=== PATIENT | female | born 2000 | race Caucasian/White ===

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

== ENCOUNTER → 2018-09-21 | Outpatient (REF) | payer OTHER ==
[~2018-09-21] MED LIST: IBUP-1022 PO; MACR100C43 PO; PYRI1TAB5 PO
== END ==
LOC: M LAB REF 17:00
PROVIDERS: ATTEND Advanced Practice Midwife
DX: R10.2 Pelvic and perineal pain (principal)

== ENCOUNTER → 2018-09-25 | Outpatient (CLI) | payer OTHER | LOC: M LAB 13:05 | PROVIDERS: ATTEND Advanced Practice Midwife | DX: O20.0 Threatened abortion (principal); Z3A.00 Weeks of gestation of pregnancy not specified ==

== ENCOUNTER 2018-10-18 23:17 | Emergency (ER) | payer OTHER, SELFPAY ==
[~2018-10-18] VITALS: Ht 170.2 cm; Wt 60.4 kg
[2018-10-19 00:34] LABS: BASO # 0.1 10^3/uL (0.0-0.2); BASO % 0.6 % (0.0-1.0); EOS # 0.1 10^3/uL (0.0-0.50); EOS % 1.4 % (0.0-3.0); HEMOGLOBIN 12.1 g/dl (12.0-15.5); LYMPH % 23.5 % (24.0-44.0); MEAN CORPUSCULAR HEMOGLOBIN 29.9 pg (27.0-33.0); MEAN CORPUSCULAR HGB CONC 32.7 g/dl (32.0-36.5); MEAN CORPUSCULAR VOLUME 91.4 fl (80.0-96.0); MONO # 0.5 10^3/uL (0.0-0.8); MONO % 6.3 % (0.0-5.0); NEUTROPHILS # 5.7 10^3/uL (1.8-7.7); PLATELET COUNT, AUTOMATED 285 10^3/uL (150-450); RED BLOOD COUNT 4.05 10^6/uL (4.00-5.40); WHITE BLOOD COUNT 8.4 10^3/uL (4.0-10.0)
--- NOTE | 2018-10-19 00:51 | REPVR ---
EXAM: CT Head Without Contrast EXAM DATE/TIME: 10/18/2018 11:46 PM CLINICAL HISTORY: 17 years old, female; Signs and symptoms; Dizziness; Additional info: Syncope TECHNIQUE: Imaging protocol: Axial computed tomography images of the head/brain without contrast. Radiation optimization: All CT scans at this facility use at least one of these dose optimization techniques: automated exposure control; mA and/or kV adjustment per patient size (includes targeted exams where dose is matched to clinical indication); or iterative reconstruction. COMPARISON: No relevant prior studies available. FINDINGS: Brain: Normal. No hemorrhage. No significant white matter disease. No edema. Ventricles: Normal. No ventriculomegaly. Bones/joints: Unremarkable. No acute fracture. Sinuses: Visualized sinuses are unremarkable. No acute sinusitis. Mastoid air cells: Visualized mastoid air cells are unremarkable. No mastoid effusion. Soft tissues: Unremarkable. IMPRESSION: Negative noncontrast head CT. Electronically signed by: Phill Newton On 10/19/2018 00:50:20 AM
[2018-10-19 00:59] LABS: BLOOD UREA NITROGEN 12 MG/DL (7-18); CALCIUM LEVEL 9.1 MG/DL (8.5-10.1); CARBON DIOXIDE LEVEL 31 MEQ/L (21-32); CHLORIDE LEVEL 106 MEQ/L (98-107); CREATININE FOR GFR 0.75 MG/DL (0.55-1.30); FREE T4 1.12 NG/DL (0.78-1.33); GLUCOSE, FASTING 83 MG/DL (70-100); POTASSIUM SERUM 3.7 MEQ/L (3.5-5.1); SODIUM LEVEL 139 MEQ/L (136-145)
[2018-10-19] MEDS ORDERED: NS 1,000 ML IV ONE (01:15)
[2018-10-19 02:00] VITALS: BP 113/69
--- NOTE | 2018-10-19 09:27 | ECGEPIP ---
Stationary ECG Study 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
== END 2018-10-19 02:34 | disposition home or self-care (01) ==
LOC: M ED 23:17
DX: R55 Syncope and collapse (principal); Z91.018 Allergy to other foods

== ENCOUNTER → 2018-12-17 | Outpatient (CLI) | payer OTHER ==
[~2018-12-17] MED LIST changes: +ASPI81TA26; +FERR32TA; +IBUP80TA PO; +KEFL500C17 PO; +ONDA4TAB6 PO; +PERCOCET PO; +PYRI25TA2 PO; +STOO2CAP
[2018-12-17 20:42] LABS: FOLLICLE STIMULATING HORMONE 3.7 mIU/mL; LUTEINIZING HORMONE 6.8 mIU/mL; PROGESTERONE 7.2 NG/ML; PROLACTIN 10.8 NG/ML
== END ==
LOC: M SMT 14:22
PROVIDERS: ATTEND Specialist
DX: N93.8 Other specified abnormal uterine and vaginal bleeding (principal)

== ENCOUNTER 2019-01-18 00:25 | Emergency (ER) | payer OTHER ==
[~2019-01-18] VITALS: Ht 170.2 cm; Wt 1.0 kg
[~2019-01-18 00:25] MED LIST changes: -ASPI81TA26; -FERR32TA; -IBUP80TA PO; -KEFL500C17 PO; -ONDA4TAB6 PO; -PERCOCET PO; -PYRI25TA2 PO; -STOO2CAP
[2019-01-18 02:34] LABS: BASO # 0.1 10^3/uL (0.0-0.2); BASO % 0.4 % (0.0-1.0); EOS # 0.2 10^3/uL (0.0-0.50); EOS % 1.3 % (0.0-3.0); HEMATOCRIT 35.5 % (36.0-47.0); HEMOGLOBIN 11.5 g/dl (12.0-15.5); LYMPH # 2.9 10^3/uL (1.5-6.5); LYMPH % 25.4 % (24.0-44.0); MEAN CORPUSCULAR HEMOGLOBIN 29.9 pg (27.0-33.0); MEAN CORPUSCULAR HGB CONC 32.4 g/dl (32.0-36.5); MEAN CORPUSCULAR VOLUME 92.4 fl (80.0-96.0); MONO # 0.6 10^3/uL (0.0-0.8); MONO % 5.3 % (0.0-5.0); NEUTROPHILS # 7.7 10^3/uL (1.8-7.7); NEUTROPHILS % 67.3 % (36.0-66.0); PLATELET COUNT, AUTOMATED 261 10^3/uL (150-450); RED BLOOD COUNT 3.84 10^6/uL (4.00-5.40); WHITE BLOOD COUNT 11.5 10^3/uL (4.0-10.0)
[2019-01-18 02:58] LABS: ALBUMIN 3.6 GM/DL (3.2-5.2); ALT/SGPT 14 U/L (12-78); BILIRUBIN,DIRECT 0.1 MG/DL (0.0-0.2); BILIRUBIN,TOTAL 0.3 MG/DL (0.2-1.0); BLOOD UREA NITROGEN 11 MG/DL (7-18); CALCIUM LEVEL 8.4 MG/DL (8.5-10.1); CARBON DIOXIDE LEVEL 26 MEQ/L (21-32); CHLORIDE LEVEL 107 MEQ/L (98-107); CREATININE FOR GFR 0.65 MG/DL (0.55-1.30); GLUCOSE, FASTING 84 MG/DL (70-100); HCG, SERUM QUANTITATIVE 12 MIU/ML; LIPASE 118 U/L (73-393); POTASSIUM SERUM 3.9 MEQ/L (3.5-5.1); SODIUM LEVEL 141 MEQ/L (136-145)
[2019-01-18 03:17] LABS: CHLAMYDIA DNA AMPLIFICATION NEGATIVE (NEGATIVE); GC DNA AMPLIFICATION NEGATIVE (NEGATIVE)
--- NOTE | 2019-01-18 05:24 | REPVR ---
EXAM: US , Transvaginal EXAM DATE/TIME: 01/18/2019 4:04 AM CLINICAL HISTORY: 18 years old, female; complicated by abdominal or pelvic pain; Left lower quadrant; First trimester; Gestational age or lmp: 12/26/18; ; Additional info: Left adnexal pain, hcg quant 12 TECHNIQUE: Imaging protocol: Real-time transvaginal obstetrical ultrasound of the maternal pelvis and a first trimester with image documentation. Transvaginal imaging was used for better evaluation of the fetus and adnexa. Other technique: Transabdominal imaging was initially performed but visibility was limited by bowel gas. COMPARISON: US PELVIC NON-OB COMPLETE 09/07/2018 9:23 AM FINDINGS: GESTATION: Gestation: No gestational sac is identified. MATERNAL: Uterus: Uterus is anteverted and measures 8.4 x 3.8 x 5.3 cm. The endometrial stripe measures 1.1 cm in thickness. Right adnexa: The right ovary contains multiple small follicles and measures 4.5 x 1.8 x 3.2 cm. Normal blood flow is seen in the right ovary on color and pulsed Doppler imaging. Left adnexa: The left ovary contains multiple small follicles and measures 4.5 x 3.0 x 4.1 cm.A rounded area of heterogeneous echogenicity is seen within the left ovary measuring 1.9 x 1.5 x 2.0 cm, likely a hemorrhagic corpus luteum. Normal blood flow is seen in the left ovary on color and pulsed Doppler imaging. Intraperitoneal: There is free fluid in the cul-de-sac and in both adnexa. IMPRESSION: 1. No gestational sac identified which may be because of the very early stage of , which would be concordant by dates and the low hCG level. Ectopic is not excluded. Followup with serial beta hCG levels is recommended, with sonographic followup as clinically indicated. 2. Small to moderate amount of nonspecific free fluid. 3. No evidence of ovarian torsion. Electronically signed by: Eliz Myers On 01/18/2019 05:24:03 AM
[2019-01-18 05:55] VITALS: BP 118/68
== END 2019-01-18 05:57 | disposition home or self-care (01) ==
LOC: M ED 00:25
DX: O02.81 Inappropriate change in quantitative human chorionic gonadotropin (hCG) in early pregnancy (principal); F17.210 Nicotine dependence, cigarettes, uncomplicated

== ENCOUNTER 2019-01-18 19:51 | Emergency (ER) | payer OTHER ==
[~2019-01-18] VITALS: Ht 170.2 cm; Wt 60.2 kg
[2019-01-18 19:52] VITALS: BP 114/73
== END 2019-01-18 21:22 | disposition left against medical advice (07) ==
LOC: M ED 19:51
DX: R10.9 Unspecified abdominal pain (principal); Z53.21 Procedure and treatment not carried out due to patient leaving prior to being seen by health care provider

== ENCOUNTER → 2019-01-20 | Outpatient (CLI) | payer OTHER | LOC: M LAB 10:09 | PROVIDERS: ATTEND Emergency Medicine | DX: E34.9 Endocrine disorder, unspecified (principal) ==

== ENCOUNTER 2019-01-22 16:15 | Emergency (ER) | payer OTHER ==
[~2019-01-22] VITALS: Ht 170.2 cm; Wt 59.1 kg
[2019-01-22 16:15] VITALS: BP 101/60
--- NOTE | 2019-01-24 14:49 | ED PDOC ---
Post-Departure Follow[facility] breast us report will be faxed there for fu Gerardo Ha MD Jan 24, 2019 14:49
== END 2019-01-22 17:14 | disposition home or self-care (01) ==
LOC: M ED 16:15
DX: O99.89 Other specified diseases and conditions complicating pregnancy, childbirth and the puerperium (principal); N63.20 Unspecified lump in the left breast, unspecified quadrant; Z3A.01 Less than 8 weeks gestation of pregnancy; O99.331 Smoking (tobacco) complicating pregnancy, first trimester; F17.210 Nicotine dependence, cigarettes, uncomplicated

== ENCOUNTER → 2019-01-24 | Outpatient (CLI) | payer OTHER ==
[~2019-01-24] MED LIST changes: +ASPI81TA26; +FERR32TA; +IBUP80TA PO; +KEFL500C17 PO; +ONDA4TAB6 PO; +PERCOCET PO; +PYRI25TA2 PO; +STOO2CAP
--- NOTE | 2019-01-24 10:14 | REP ---
LEFT BREAST ULTRASOUND: Real-time sonographic evaluation of the left breast performed for a palpable lump in the region of 12 to 2 o'clock left breast. There is dense fibroglandular tissue in this region. Cystic appearing areas with low level echoes is oval in shape with slightly irregular margins at the 2 o'clock position of the left breast. This measures 5 x 3 x 3 mm. This is likely a benign slightly complex cyst. No other cystic or solid nodule is seen. IMPRESSION: ACR 3 probably benign. At the 2 o'clock position of the left breast is an oval cystic structure with low level echoes measuring 5 x 3 x 3 mm. Recommend followup ultrasound in 6 months. Electronically Signed by George Díaz MD 01/24/2019 10:18 A
== END ==
LOC: M RAD 07:38
PROVIDERS: ATTEND Emergency Medicine
DX: N63.20 Unspecified lump in the left breast, unspecified quadrant (principal)

== ENCOUNTER 2019-02-01 13:54 | Emergency (ER) | payer OTHER ==
[~2019-02-01] VITALS: Ht 170.2 cm; Wt 62.7 kg
[~2019-02-01 13:54] MED LIST changes: -ASPI81TA26; -FERR32TA; -IBUP80TA PO; -KEFL500C17 PO; -ONDA4TAB6 PO; -PERCOCET PO; -PYRI25TA2 PO; -STOO2CAP
[2019-02-01 13:55] VITALS: BP 113/65
[2019-02-02] MEDS ORDERED: PYRI25TA2 PO (17:31)
== END 2019-02-01 16:28 | disposition left against medical advice (07) ==
LOC: M ED 13:54
DX: Z53.21 Procedure and treatment not carried out due to patient leaving prior to being seen by health care provider (principal)

== ENCOUNTER 2019-02-02 15:31 | Emergency (ER) | payer OTHER ==
[~2019-02-02] VITALS: Ht 170.2 cm; Wt 63.0 kg
[2019-02-02] MEDS ORDERED: PYRI25TA2 PO (17:31)
[2019-02-02 17:37] LABS: BASO # 0.1 10^3/uL (0.0-0.2); BASO % 0.4 % (0.0-1.0); EOS # 0.1 10^3/uL (0.0-0.50); EOS % 0.5 % (0.0-3.0); HEMATOCRIT 36.1 % (36.0-47.0); HEMOGLOBIN 11.5 g/dl (12.0-15.5); LYMPH # 1.8 10^3/uL (1.5-6.5); LYMPH % 12.5 % (24.0-44.0); MEAN CORPUSCULAR HEMOGLOBIN 28.7 pg (27.0-33.0); MEAN CORPUSCULAR HGB CONC 31.9 g/dl (32.0-36.5); MONO # 0.7 10^3/uL (0.0-0.8); MONO % 4.8 % (0.0-5.0); NEUTROPHILS # 11.9 10^3/uL (1.8-7.7); NEUTROPHILS % 81.5 % (36.0-66.0); PLATELET COUNT, AUTOMATED 260 10^3/uL (150-450); RED BLOOD COUNT 4.01 10^6/uL (4.00-5.40); WHITE BLOOD COUNT 14.7 10^3/uL (4.0-10.0)
[2019-02-02 18:36] VITALS: BP 123/64
== END 2019-02-02 18:50 | disposition home or self-care (01) ==
LOC: M ED 15:31
DX: Z32.01 Encounter for pregnancy test, result positive (principal); D72.829 Elevated white blood cell count, unspecified

== ENCOUNTER 2019-02-03 10:55 | Emergency (ER) | payer OTHER ==
[~2019-02-03] VITALS: Ht 170.2 cm; Wt 61.3 kg
[~2019-02-03 10:55] MED LIST changes: +PYRI25TA2 PO
[2019-02-03] MEDS ORDERED: NS 1,000 ML IV ONE (11:15)
[2019-02-03] MEDS ORDERED: METOCLOPRAMIDE INJ 10MG/2ML VIAL (J2765) IV ONE (11:15)
[2019-02-03 11:47] LABS: BASO % 0.3 % (0.0-1.0); EOS # 0.1 10^3/uL (0.0-0.50); EOS % 0.5 % (0.0-3.0); HEMATOCRIT 35.6 % (36.0-47.0); HEMOGLOBIN 11.6 g/dl (12.0-15.5); LYMPH # 1.2 10^3/uL (1.5-6.5); LYMPH % 12.2 % (24.0-44.0); MEAN CORPUSCULAR HEMOGLOBIN 30.1 pg (27.0-33.0); MEAN CORPUSCULAR HGB CONC 32.6 g/dl (32.0-36.5); MEAN CORPUSCULAR VOLUME 92.2 fl (80.0-96.0); MONO # 0.5 10^3/uL (0.0-0.8); MONO % 4.8 % (0.0-5.0); NEUTROPHILS # 8.1 10^3/uL (1.8-7.7); NEUTROPHILS % 81.9 % (36.0-66.0); PLATELET COUNT, AUTOMATED 238 10^3/uL (150-450); RED BLOOD COUNT 3.86 10^6/uL (4.00-5.40); WHITE BLOOD COUNT 9.9 10^3/uL (4.0-10.0)
[2019-02-03 12:16] LABS: ALBUMIN 3.6 GM/DL (3.2-5.2); ALT/SGPT 14 U/L (12-78); BILIRUBIN,TOTAL 0.7 MG/DL (0.2-1.0); BLOOD UREA NITROGEN 11 MG/DL (7-18); CALCIUM LEVEL 9.1 MG/DL (8.5-10.1); CARBON DIOXIDE LEVEL 28 MEQ/L (21-32); CHLORIDE LEVEL 105 MEQ/L (98-107); CREATININE FOR GFR 0.66 MG/DL (0.55-1.30); GLUCOSE, FASTING 89 MG/DL (70-100); LIPASE 85 U/L (73-393); POTASSIUM SERUM 3.8 MEQ/L (3.5-5.1); SODIUM LEVEL 137 MEQ/L (136-145)
[2019-02-03 12:40] VITALS: BP 92/50
== END 2019-02-03 13:05 | disposition home or self-care (01) ==
LOC: M ED 10:55
DX: O21.9 Vomiting of pregnancy, unspecified (principal); Z3A.01 Less than 8 weeks gestation of pregnancy
CPT/HCPCS: 80053; 83690; 85025; 96361; 96374; 99284; J2765

== ENCOUNTER → 2019-02-14 | Outpatient (CLI) | payer OTHER ==
[~2019-02-14] MED LIST changes: +ASPI81TA26; +FERR32TA; +IBUP80TA PO; +KEFL500C17 PO; +ONDA4TAB6 PO; +PERCOCET PO; +STOO2CAP
[2019-02-14 12:50] LABS: BASO # 0.1 10^3/uL (0.0-0.2); BASO % 0.4 % (0.0-1.0); EOS # 0.1 10^3/uL (0.0-0.50); EOS % 0.3 % (0.0-3.0); HEMATOCRIT 38.6 % (36.0-47.0); HEMOGLOBIN 12.5 g/dl (12.0-15.5); LYMPH % 13.1 % (24.0-44.0); MEAN CORPUSCULAR HEMOGLOBIN 28.9 pg (27.0-33.0); MEAN CORPUSCULAR HGB CONC 32.4 g/dl (32.0-36.5); MEAN CORPUSCULAR VOLUME 89.4 fl (80.0-96.0); MONO # 0.5 10^3/uL (0.0-0.8); MONO % 3.1 % (0.0-5.0); NEUTROPHILS # 12.4 10^3/uL (1.8-7.7); NEUTROPHILS % 82.7 % (36.0-66.0); PLATELET COUNT, AUTOMATED 333 10^3/uL (150-450); RED BLOOD COUNT 4.32 10^6/uL (4.00-5.40); WHITE BLOOD COUNT 14.9 10^3/uL (4.0-10.0)
[2019-02-14 14:45] LABS: CHLAMYDIA DNA AMPLIFICATION NEGATIVE (NEGATIVE); GC DNA AMPLIFICATION NEGATIVE (NEGATIVE)
[2019-02-15 09:59] LABS: HEPATITIS C VIRUS ABY INDEX < 0.0 INDEX (<0.8); HIV 1&2 SCREEN CENTAUR NEGATIVE (NEGATIVE); RUBELLA IgG QUALITATIVE IMMUNE (IMMUNE)
== END ==
LOC: M LAB 11:51
PROVIDERS: ATTEND Advanced Practice Midwife
DX: O30.041 Twin pregnancy, dichorionic/diamniotic, first trimester (principal); Z3A.01 Less than 8 weeks gestation of pregnancy

== ENCOUNTER 2019-03-09 09:44 | Emergency (ER) | payer OTHER ==
[~2019-03-09] VITALS: Ht 170.2 cm; Wt 62.1 kg
[~2019-03-09 09:44] MED LIST changes: -ASPI81TA26; -FERR32TA; -IBUP80TA PO; -KEFL500C17 PO; -ONDA4TAB6 PO; -PERCOCET PO; -STOO2CAP
[2019-03-09] MEDS ORDERED: ONDA4TAB6 PO (09:50)
[2019-03-09] MEDS ORDERED: ACETAMINOPHEN 500 MG TAB PO ONE (10:00)
[2019-03-09] MEDS ORDERED: NS 1,000 ML IV ONE (10:15)
[2019-03-09 11:39] LABS: BASO % 0.1 % (0.0-1.0); HEMOGLOBIN 10.5 g/dl (12.0-15.5); LYMPH # 0.5 10^3/uL (1.5-5.0); LYMPH % 3.7 % (24.0-44.0); MEAN CORPUSCULAR HEMOGLOBIN 28.6 pg (27.0-33.0); MEAN CORPUSCULAR HGB CONC 32.8 g/dl (32.0-36.5); MEAN CORPUSCULAR VOLUME 87.2 fl (80.0-96.0); MONO # 1.1 10^3/uL (0.0-0.8); MONO % 7.3 % (0.0-5.0); NEUTROPHILS # 12.8 10^3/uL (1.5-8.5); NEUTROPHILS % 88.5 % (36.0-66.0); PLATELET COUNT, AUTOMATED 236 10^3/uL (150-450); RED BLOOD COUNT 3.67 10^6/uL (4.00-5.40); WHITE BLOOD COUNT 14.4 10^3/uL (4.0-10.0)
--- NOTE | 2019-03-09 11:49 | REP ---
RIGHT UPPER QUADRANT ULTRASOUND: Real-time sonographic evaluation of the right upper quadrant performed. Gallbladder demonstrates no evidence of intraluminal sludge or calculi, wall thickening or pericholecystic fluid. There is no intrahepatic or extrahepatic biliary dilatation, common bile duct measuring 2 mm. Liver and pancreas demonstrate homogeneous echotexture with no gross mass. Right kidney demonstrates no hydronephrosis with normal size 10.8 cm in length. No free fluid is seen. IMPRESSION: Negative right upper quadrant ultrasound. Electronically Signed by George Díaz MD 03/10/2019 05:53 P
--- NOTE | 2019-03-09 11:54 | REP ---
TWIN OB ULTRASOUND: Real-time sonographic evaluation of the gravid uterus performed. There is a living intrauterine twin gestation which is diamniotic, dichorionic. Estimated gestational age based on LMP 10 weeks 3 days, EDC 10/02/2019. Placenta is posterior and grade 0 with no abruption. There is no subchorionic hemorrhage. No maternal adnexal region abnormality is seen, blood flow is seen in each ovary with duplex Doppler evaluation. Fetus A crown rump length 43 mm = 11 weeks 1 day, heart rate 171 beats per minute. Fetus B crown rump length 43 mm = 11 weeks 1 day, heart rate 168 beats per minute. Electronically Signed by George Díaz MD 03/10/2019 05:53 P
[2019-03-09 12:01] LABS: ALBUMIN 3.2 GM/DL (3.2-5.2); ALT/SGPT 11 U/L (12-78); BILIRUBIN,DIRECT 0.1 MG/DL (0.0-0.2); BILIRUBIN,TOTAL 0.5 MG/DL (0.2-1.0); BLOOD UREA NITROGEN 9 MG/DL (7-18); CALCIUM LEVEL 9.1 MG/DL (8.5-10.1); CARBON DIOXIDE LEVEL 23 MEQ/L (21-32); CHLORIDE LEVEL 101 MEQ/L (98-107); CREATININE FOR GFR 0.56 MG/DL (0.55-1.30); GLUCOSE, FASTING 83 MG/DL (70-100); LIPASE 74 U/L (73-393); POTASSIUM SERUM 3.7 MEQ/L (3.5-5.1); SODIUM LEVEL 134 MEQ/L (136-145); TOTAL PROTEIN 6.9 GM/DL (6.4-8.2)
[2019-03-09] MEDS ORDERED: cefTRIAXone SOD 1 GM in D5W MINI-BAG PLUS 50 ML IV ONE (12:30)
[2019-03-09] MEDS ORDERED: KEFL500C17 PO (13:27)
[2019-03-09 13:31] VITALS: BP 108/59
== END 2019-03-09 13:34 | disposition home or self-care (01) ==
LOC: M ED 09:44
DX: O23.01 Infections of kidney in pregnancy, first trimester (principal); N10 Acute pyelonephritis; Z3A.11 11 weeks gestation of pregnancy; O30.041 Twin pregnancy, dichorionic/diamniotic, first trimester
CPT/HCPCS: 76705; 76801; 76802; 80048; 80076; 81001; 83605; 83690; 85025; 87088; 87186; 96361; 96365; 99284; J0696

== ENCOUNTER → 2019-03-14 | Outpatient (CLI) | payer OTHER ==
[~2019-03-14] MED LIST changes: +ASPI81TA26; +FERR32TA; +IBUP80TA PO; +KEFL500C17 PO; +ONDA4TAB6 PO; +PERCOCET PO; +STOO2CAP
== END ==
LOC: M SMT 13:20
PROVIDERS: ATTEND Advanced Practice Midwife
DX: O30.001 Twin pregnancy, unspecified number of placenta and unspecified number of amniotic sacs, first trimester (principal); Z3A.00 Weeks of gestation of pregnancy not specified

== ENCOUNTER 2019-05-17 11:17 | Emergency (ER) | payer OTHER ==
[~2019-05-17] VITALS: Ht 170.2 cm; Wt 68.6 kg
[~2019-05-17 11:17] MED LIST changes: -ASPI81TA26; -FERR32TA; -IBUP80TA PO; -PERCOCET PO; -STOO2CAP
[2019-05-17] MEDS ORDERED: FERR32TA (11:23)
[2019-05-17] MEDS ORDERED: STOO2CAP (11:23)
[2019-05-17] MEDS ORDERED: ASPI81TA26 (11:23)
[2019-05-17] MEDS ORDERED: ACETAMINOPHEN 325 MG TAB PO ONE (12:00)
[2019-05-17 13:57] VITALS: BP 106/61
--- NOTE | 2019-05-20 07:52 | REP ---
Clinical: Twin gestation. Trauma. Fall. Comparison: 03/09/2019 . Findings: Examination demonstrates diamniotic dichorionic twin gestation. Cervix measures 3.7 cm cm in length and appears closed. Gestational age by LMP at 20 weeks 2 days with estimated date of delivery 10/02/2019 . TWIN A: Twin A identified in cephalic presentation along the maternal left side. Placenta is noted posterior and grade I without evidence for placenta previa or abruption. motion is appreciated. Amniotic fluid volume is normal and the deepest pocket measures 4.8 cm. FHR equals 136 beats per minute. No gross abnormalities are identified. ------- TWIN B: Twin B identified in cephalic presentation along the maternal right side. Placenta is noted posterior and grade I without evidence for placenta previa or abruption. motion is appreciated. Amniotic fluid volume is normal and the deepest pocket measures 4.9 cm. FHR equals 140 beats per minute. No gross abnormalities are identified. Impression: Diamniotic dichorionic twin gestation appears normal. Electronically Signed by Ryan Quintero MD 05/17/2019 12:51 P
== END 2019-05-17 13:59 | disposition home or self-care (01) ==
LOC: M ED 11:17
DX: O99.89 Other specified diseases and conditions complicating pregnancy, childbirth and the puerperium (principal); S20.229A Contusion of unspecified back wall of thorax, initial encounter; W10.9XXA Fall (on) (from) unspecified stairs and steps, initial encounter; Y92.9 Unspecified place or not applicable; Y93.9 Activity, unspecified; Y99.9 Unspecified external cause status; O30.042 Twin pregnancy, dichorionic/diamniotic, second trimester; Z3A.20 20 weeks gestation of pregnancy; Z79.82 Long term (current) use of aspirin; Z79.899 Other long term (current) drug therapy

== ENCOUNTER → 2019-05-20 | Outpatient (CLI) | payer OTHER ==
[~2019-05-20] MED LIST changes: +ASPI81TA26; +FERR32TA; +STOO2CAP
--- NOTE | 2019-05-20 15:00 | REP ---
Clinical: Twin gestation. Comparison: 05/17/2019 . Findings: Examination demonstrates diamniotic dichorionic twin gestation. Cervix measures 4.5 cm cm in length and appears closed. Concordant growth is noted. Gestational age by LMP at 20 weeks 6 days with estimated date of delivery 10/01/2019 . TWIN A: Twin A identified in cephalic presentation along the maternal left side. Placenta is noted posterior and grade zero without evidence for placenta previa or abruption. motion is appreciated. Amniotic fluid volume is normal and the deepest pocket measures 5.7 cm. FHR equals 150 beats per minute. BPD 5.4 cm 22 weeks 3 days HC 18.9 cm 21 weeks 1 day AC 15.9 cm 21 weeks 0 days FL 3.3 cm 20 weeks 2 days HL 3.1 cm 20 weeks 3 days HC/AC ratio 1.19 Gestational age by current measurements: 21 weeks 1 day . Estimated weight 379 grams ( 44th percentile). Anatomical assessment demonstrates normal cranium, choroid plexus, cavum, posterior fossa, facial features, lungs, heart/ventricular outflow tracts, diaphragm, stomach, cord insertion/three-vessel cord, kidneys/bladder, spine, and extremities. ------- TWIN B: Twin B identified in breech presentation along the maternal right side. Placenta is noted posterior and grade zero without evidence for placenta previa or abruption. motion is appreciated. Amniotic fluid volume is normal and the deepest pocket measures 3.8 cm. FHR equals 137 beats per minute. BPD 5.2 cm 21 weeks 5 days HC 19.1 cm 21 weeks 3 days AC 16.2 cm 21 weeks 2 days FL 3.2 cm 20 weeks 0 days HL 3.3 cm 20 weeks 6 days HC/AC ratio 1.18 Gestational age by current measurements: 21 weeks 1 day . Estimated weight 380 grams ( 44 percentile). Anatomical assessment demonstrates normal cranium, choroid plexus, cavum, posterior fossa, lungs, heart, diaphragm, stomach, cord insertion/three-vessel cord, kidneys/bladder, spine, and extremities. Limited evaluation of the facial features and cardiac ventricular outflow tracts noted. Impression: Diamniotic dichorionic twin gestation demonstrating appropriate concordant growth. No gross abnormalities are identified. Anatomical limitations involving twin B may warrant reevaluation and follow-up. Electronically Signed by Ryan Quintero MD 05/20/2019 02:51 P
== END ==
LOC: M RAD 12:30
PROVIDERS: ATTEND Advanced Practice Midwife
DX: O30.042 Twin pregnancy, dichorionic/diamniotic, second trimester (principal); Z3A.22 22 weeks gestation of pregnancy; O32.1XX2 Maternal care for breech presentation, fetus 2

== ENCOUNTER 2019-06-12 22:03 | Outpatient (CLI) | payer OTHER ==
[~2019-06-12] VITALS: Ht 170.2 cm; Wt 70.5 kg
[2019-06-12 22:29] VITALS: BP 119/57
[2019-06-12 23:09] VITALS: BP 116/57
[2019-06-13] MEDS ORDERED: IBUP80TA PO (10:55)
[2019-06-13] MEDS ORDERED: PERCOCET PO (10:55)
== END 2019-06-12 23:20 | disposition home or self-care (01) ==
LOC: M LDO 22:03
PROVIDERS: ATTEND Obstetrics & Gynecology
DX: O30.042 Twin pregnancy, dichorionic/diamniotic, second trimester (principal); Z3A.24 24 weeks gestation of pregnancy; O26.892 Other specified pregnancy related conditions, second trimester

== ENCOUNTER 2019-06-13 08:17 | Inpatient (IN) | payer OTHER ==
[2019-06-13] VITALS (7 sets, daily range): BP systolic 94–122; BP diastolic 57–70
[~2019-06-13] VITALS: Ht 167.6 cm; Wt 70.0 kg
[2019-06-13] MEDS ORDERED: LACTATED RINGER'S 1000 ML IV STA (09:02)
[2019-06-13] MEDS ORDERED: PORACTANT ALFA 80MG/ML 1.5 ML VIAL(CUROSURF) As Ordered ONE (09:10)
[2019-06-13] MEDS ORDERED: AZITHROMYCIN INJ 500MG VIAL (J0456) As Ordered ONE (09:14)
[2019-06-13] MEDS ORDERED: BICITRA 30ML SOLN UDC As Ordered ONE (09:14)
[2019-06-13] MEDS ORDERED: ceFAZolin 2 GM/D5W 50 ML IV BAG (J0690 PER 500MG) As Ordered ONE (09:14)
[2019-06-13] MEDS ORDERED: PROPOFOL 200 MG/20 ML VIAL As Ordered ONE (09:15)
[2019-06-13] MEDS ORDERED: SUCCINYLCHOLINE 100 MG/5 ML SYRINGE (J0330) As Ordered ONE (09:15)
[2019-06-13] MEDS ORDERED: OXYTOCIN INJ 10 UNITS/ML VIAL (J2590) As Ordered ONE ×3 (09:16→10:20)
[2019-06-13] MEDS ORDERED: MIDAZOLAM INJ 2 MG/2 ML VIAL (J2250) As Ordered ONE (09:19)
[2019-06-13] MEDS ORDERED: fentaNYL 100 MCG/2 ML INJECTION (J3010) As Ordered ONE ×2 (09:19→10:03)
[2019-06-13 09:23] LABS: HEMATOCRIT 28.1 % (36.0-47.0); HEMOGLOBIN 8.5 g/dl (12.0-15.5); MEAN CORPUSCULAR HEMOGLOBIN 26.7 pg (27.0-33.0); MEAN CORPUSCULAR HGB CONC 30.2 g/dl (32.0-36.5); MEAN CORPUSCULAR VOLUME 88.4 fl (80.0-96.0); PLATELET COUNT, AUTOMATED 255 10^3/uL (150-450); RED BLOOD COUNT 3.18 10^6/uL (4.00-5.40); WHITE BLOOD COUNT 20.9 10^3/uL (4.0-10.0)
--- NOTE | 2019-06-13 09:31 | HPEPDOC ---
Obstetrical History & Physical General Date of Admission Jun 13, 2019 at 08:57 History of Present Illness Chief Complaint: Contractions, pre-term Information Provided By: Patient Age: 18 : 1 Term: 0 Pre-term: 0 Abortions: 0 Livin Care Care: Good Care Dating Final EDC: Oct 02, 2019 Final EDC by: LMP (confirmed by 6wk sono) EGA at Admission: 24 (+1) Antepartum Course Height (inches): 67 Pre- weight (lbs.): 130 Admission Weight (lbs.): 154 Past Medical History Past Obstetrical History : Past Obstetrical History: Primgravida RN RECOVERY History: No pertinent history Past Medical History Surgical History: Other (knee) Social History Marital Status: Single Family situation: Spouse/partner home Psychosocial History: No pertinent psych hx * Smoker: non-smoker Alcohol: Denies Drugs: denies Abuse Violence Screening Have you been hit/kicked/slapp: No Have you been sexually assault: No Allergies Coded Allergies: No Known Allergies (Unverified , 02/01/19) Medications Miscellaneous Medications Aspirin (Aspirin EC) 81 Mg Tablet.dr Docusate Sodium (Stool Softener) 100 Mg Capsule Ferrous Gluconate (Ferrous Gluconate) 324 Mg Tablet Physical Examination Physical Examination GENERAL: Alert and oriented times three. BREAST: . ABDOMEN: Gravid and non-tender to touch. FETUS: Baby A vertex via sono, Baby B breech. HEART RATE: Regular rate and rhythm. LUNGS: Clear to auscultation (CTA). EXTREMITIES: No edema. No clonus. Deep tendon reflexes (DTRs) + 2. Pertinent Laboratoy Data Blood Type: A+ RBC Antibody Screen: Negative HIV: Negative Hepatitis B: Negative Hepatitis C: Negative Rapid Plasma Reagin: Nonreactive Rubella: Immune Chlamydia/Gonorrhea: Negative Group B Streptococcus: Unknown Quad Screen Test: Declined Diag/Inter Therapy Panorama low risk fraternal males Anatomy Ultrasound Ultrasound Date: Mar 09, 2019 Placenta Location: Posterior (x2) Normal Anatomy: Yes (x2) Placenta Previa: No Estimated Weight (grams): 379 (380) Other Ultrasounds 02/05/19 dating 6wks di/di Steroid Therapy Steroid Therapy: No Vaginal Examination Dilation: complete Cervical Consistency: Soft Cervical Position: Other (vertex/breech) Assessment Heart Rate (FHR): 145 (+/+) Tocometer Contractions: Yes Frequency: irregular Assessment/Plan Assessment Felicitas is a 18-year-old (G)1 para (P)0-0-0-0 at 24+1 weeks by 6-week ultrasound. Presents to Labor and Delivery (L&D) with reports of bleeding starting 0700. Was evaluated yesterday with reports of contractions, discharged with [facility]. Denies LOF. Reports good movement x 2. Plan Admit and orient per consult Dr Osei. Tinsmith Helper and consent. Diet: NPO. Group B Streptococcus (GBS) unknown. Labs and intravenous (IV) per unit protocol. Lactated Ringers (LR): Bolus 1000 mL, then at 125 mL/hr. Preparations made for primary per Dr Osei. Pt verbalized understanding of diagnosis of active labor. NICU alerted. C-S as appropriate. Vero Mathew CNM Jun 13, 2019 09:23
[2019-06-13] MEDS ORDERED: ROCURONIUM BROMIDE 50 MG/5 ML VIAL As Ordered ONE (09:44)
[2019-06-13] MEDS ORDERED: KETOROLAC 60 MG/2 ML VIAL (J1885) As Ordered ONE (09:46)
[2019-06-13] MEDS ORDERED: dexameTHASONE 4 MG/ML 1ML VIAL (J1100) As Ordered ONE (09:46)
[2019-06-13] MEDS ORDERED: ONDANSETRON 4MG/2ML VIAL (J2405) As Ordered ONE (09:46)
[2019-06-13] MEDS ORDERED: LR 1,000 ML IV SCH (10:00)
[2019-06-13] MEDS ORDERED: ceFAZolin SOD 2 GM in IV 1 EA IV ONE (10:00)
[2019-06-13] MEDS ORDERED: AZITHROMYCIN INJ 500 MG, VIAL MATE ADAPTER 1 EACH in D5W 250 ML IV ONE (10:00)
[2019-06-13] MEDS ORDERED: BICITRA 30ML SOLN UDC PO ONE (10:00)
[2019-06-13] MEDS ORDERED: SUGAMMADEX SODIUM 500 MG/5 ML VIAL (BRIDION) As Ordered ONE (10:01)
[2019-06-13] MEDS ORDERED: ACETAMINOPHEN 1000MG 100ML IV BTL (OFIRMEV) (J0131 PER 10MG) As Ordered ONE (10:12)
[2019-06-13 10:32] LABS: CORD GAS ABE V -1.1; CORD GAS HCO3 V 25.4 MEQ/L; CORD GAS O2 SAT V 84.5 %; CORD GAS PCO2 V 49.8 mmHg; CORD GAS PH V 7.326 UNITS; CORD GAS SBC V 23.3 MEQ/L
[2019-06-13 10:34] LABS: CORD GAS ABE A -0.7; CORD GAS HCO3 A 26.1 MEQ/L; CORD GAS O2 SAT A 70.6 %; CORD GAS PCO2 A 51.9 mmHg; CORD GAS PH A 7.32 UNITS; CORD GAS PO2 A 29.2 mmHg; CORD GAS SBC A 23.3 MEQ/L; CORD GAS TCO2 A 27.7 MEQ/L
[2019-06-13 10:37] LABS: CORD GAS ABE V -2.4; CORD GAS HCO3 V 23.2 MEQ/L; CORD GAS O2 SAT V 98.7 %; CORD GAS PCO2 V 42.9 mmHg; CORD GAS PH V 7.351 UNITS; CORD GAS PO2 V 92.1 mmHg; CORD GAS SBC V 22.5 MEQ/L; CORD GAS TCO2 V 24.5 MEQ/L
[2019-06-13] MEDS ORDERED: ACETAMINOPHEN TAB 650MG DOSE (2X325MG) PO PRN (10:45)
[2019-06-13] MEDS ORDERED: DOCUSATE SODIUM 100 MG CAP PO PRN (10:45)
[2019-06-13] MEDS ORDERED: ONDANSETRON 4 MG TAB (S0181) PO PRN (10:45)
[2019-06-13] MEDS ORDERED: PERCOCET 5MG/325MG TAB PO PRN (10:45)
[2019-06-13] MEDS ORDERED: IBUP80TA PO (10:55)
[2019-06-13] MEDS ORDERED: PERCOCET PO (10:55)
[2019-06-13] MEDS ORDERED: ONDANSETRON 4MG/2ML VIAL (J2405) IV PRN (11:00)
[2019-06-13] MEDS ORDERED: RHOGAM 300 MCG (1500 IU) INJ (J2790) IM SCH (11:00)
[2019-06-13] MEDS ORDERED: fentaNYL 100 MCG/2 ML INJECTION (J3010) IV PRN (11:00)
[2019-06-13] MEDS ORDERED: oxyCODONE 5MG TAB PO PRN (11:00)
[2019-06-13] MEDS ORDERED: OXYTOCIN DRIP 30 UNITS in IV 1 EA IV SCH (11:00)
[2019-06-13] MEDS ORDERED: MEASLES,MUMPS,RUBELLA VACCINE INJ (MMR-II) (90707) SC SCH (11:00)
[2019-06-13] MEDS: KETOROLAC 30 MG/ML VIAL (J1885) IV SCH ×2 (16:07→22:45)
[2019-06-13] MEDS: oxyCODONE 5MG TAB PO PRN (23:54)
[2019-06-14 02:00] VITALS: BP 116/74
[2019-06-14] MEDS: KETOROLAC 30 MG/ML VIAL (J1885) IV SCH (04:43)
[2019-06-14 05:57] VITALS: BP 105/60
[2019-06-14 07:05] LABS: HEMATOCRIT 24.1 % (36.0-47.0); HEMOGLOBIN 7.4 g/dl (12.0-15.5); MEAN CORPUSCULAR HEMOGLOBIN 26.7 pg (27.0-33.0); MEAN CORPUSCULAR HGB CONC 30.7 g/dl (32.0-36.5); PLATELET COUNT, AUTOMATED 231 10^3/uL (150-450); RED BLOOD COUNT 2.77 10^6/uL (4.00-5.40); WHITE BLOOD COUNT 23.1 10^3/uL (4.0-10.0)
--- NOTE | 2019-06-14 07:38 | IPNPDOC ---
Text Note Date of Service The patient was seen on 06/14/19. NOTE POD #1 Feels well. Adequate pain management. Pumping. Voiding VSS, afebrile, normotensive Elevated WBC Breasts soft Fundus firm, NT Dressing intact, old drainage. Lochia rubra scant without odor PO #[address] Osei for discharge. VS,Fishbone, I+O VS, Fishbone, I+O Laboratory Tests 06/13/19 09:10 06/14/19 06:43 Vital Signs Date Time Temp Pulse Resp B/P (MAP) Pulse Ox O2 Delivery O2 Flow Rate FiO2 06/14/19 05:57 98.8 87 16 105/60 (75) 100 Room Air 06/13/19 11:20 2 I&O- Last 24 Hours up to 6 AM 06/14/19 06:00 Intake Total 5440 ml Output Total 5650 ml Balance -210 ml Vero Mathew CNM Jun 14, 2019 07:38
[2019-06-14] MEDS: PRENATAL VITAMINS CHEWABLE TABLET PO SCH (08:07)
[2019-06-14] MEDS: oxyCODONE 5MG TAB PO PRN ×2 (08:08→21:31)
[2019-06-14] MEDS ORDERED: ADACEL/BOOSTRIX VACCINE (DIPHTH/PERTUSS/ACELL/TETANUS)0.5ML SYR (90715) IM ONE (09:00)
[2019-06-14 10:00] VITALS: BP 131/56
[2019-06-14] MEDS: IBUPROFEN 800 MG TAB PO SCH ×2 (11:52→20:07)
[2019-06-14 14:00] VITALS: BP 110/63
[2019-06-14 15:40] VITALS: BP 111/64
[2019-06-14 22:00] VITALS: BP 112/68
[2019-06-15 02:00] VITALS: BP 101/54
[2019-06-15] MEDS: IBUPROFEN 800 MG TAB PO SCH (05:01)
[2019-06-15 06:00] VITALS: BP 104/59
[2019-06-15] MEDS: oxyCODONE 5MG TAB PO PRN (08:23)
[2019-06-15] MEDS: PRENATAL VITAMINS CHEWABLE TABLET PO SCH (08:23)
--- NOTE | 2019-06-15 19:01 | DSES ---
DATE OF ADMISSION: 06/13/2019 DATE OF DISCHARGE: 06/15/2019 HISTORY: A 18-year-old G1 at 24-1/7 weeks gestation with twins presents with painful contractions that increase in intensity. Upon presentation to the hospital, she is found to be 10 cm dilated with both fetuses in an abnormal lie. HOSPITAL COURSE: On 06/13/2019, the patient was diagnosed in active labor with severely premature twins. She underwent primary section for viable twins without complication. Her postoperative course was unremarkable. She had adequate return of bowel and bladder function. Her postoperative hemoglobin was 7.4 g/dL. Both twins were transferred to [facility] for further care. She was deemed stable for discharge on postoperative day #2. ADMISSION DIAGNOSES: 1. , 24 weeks, twins. 2. Labor. DISCHARGE DIAGNOSIS: Delivered. PROCEDURE: Primary elective transverse section. DISPOSITION: The patient will follow up with Dr. Recinos in two weeks. Instructions were reviewed. edited: 06/17/2019 0720 tkf MTDD
== END 2019-06-15 11:55 | disposition home or self-care (01) | DRG 540 ==
LOC: M LDO 08:17 → M LDI 08:57 → M OBS 11:55
PROVIDERS: ADMIT Advanced Practice Midwife; ATTEND Advanced Practice Midwife
PROC: 10D00Z1 Extraction of Products of Conception, Low, Open Approach (ICD-10-PCS; principal; 2019-06-13 09:30)
DX: O60.14X1 Preterm labor third trimester with preterm delivery third trimester, fetus 1 (principal); O60.14X2 Preterm labor third trimester with preterm delivery third trimester, fetus 2; O30.043 Twin pregnancy, dichorionic/diamniotic, third trimester; Z3A.24 24 weeks gestation of pregnancy; Z37.2 Twins, both liveborn; O76 Abnormality in fetal heart rate and rhythm complicating labor and delivery; O64.8XX2 Obstructed labor due to other malposition and malpresentation, fetus 2; O64.1XX1 Obstructed labor due to breech presentation, fetus 1

== ENCOUNTER → 2019-11-06 | Outpatient (REF) | payer OTHER ==
[~2019-11-06] MED LIST changes: +IBUP80TA PO; +PERCOCET PO
[2019-11-06 20:46] LABS: CHLAMYDIA DNA AMPLIFICATION NEGATIVE (NEGATIVE); GC DNA AMPLIFICATION NEGATIVE (NEGATIVE)
== END ==
LOC: M SFHCWAGY 17:17
PROVIDERS: ATTEND Obstetrics & Gynecology
DX: N93.9 Abnormal uterine and vaginal bleeding, unspecified (principal)

== ENCOUNTER 2020-03-15 11:08 | Emergency (ER) | payer OTHER ==
[~2020-03-15] VITALS: Ht 170.2 cm; Wt 79.6 kg
[2020-03-15 11:56] LABS: HEMATOCRIT 34.1 % (36.0-47.0); MEAN CORPUSCULAR HEMOGLOBIN 23.9 pg (27.0-33.0); MEAN CORPUSCULAR HGB CONC 29.3 g/dl (32.0-36.5); MEAN CORPUSCULAR VOLUME 81.4 fl (80.0-96.0); PLATELET COUNT, AUTOMATED 327 10^3/uL (150-450); RED BLOOD COUNT 4.19 10^6/uL (4.00-5.40); WHITE BLOOD COUNT 5.4 10^3/uL (4.0-10.0)
[2020-03-15 12:23] VITALS: BP 107/65
== END 2020-03-15 12:28 | disposition home or self-care (01) ==
LOC: M ED 11:08
DX: N92.0 Excessive and frequent menstruation with regular cycle (principal); D64.9 Anemia, unspecified; F41.9 Anxiety disorder, unspecified; Z79.3 Long term (current) use of hormonal contraceptives

== ENCOUNTER → 2021-01-08 | Outpatient (CLI) | payer OTHER ==
[~2021-01-08] MED LIST changes: +DOCU-160; -STOO2CAP
[2021-01-08 14:40] LABS: HEMATOCRIT 37.5 % (36.0-47.0); HEMOGLOBIN 11.6 g/dl (12.0-15.5); MEAN CORPUSCULAR HEMOGLOBIN 26.4 pg (27.0-33.0); MEAN CORPUSCULAR HGB CONC 30.9 g/dl (32.0-36.5); MEAN CORPUSCULAR VOLUME 85.4 fl (80.0-96.0); PLATELET COUNT, AUTOMATED 244 10^3/uL (150-450); RED BLOOD COUNT 4.39 10^6/uL (4.00-5.40); WHITE BLOOD COUNT 6.5 10^3/uL (4.0-10.0)
[2021-01-08 15:07] LABS: ALBUMIN 3.8 GM/DL (3.2-5.2); ALT/SGPT 18 U/L (12-78); BILIRUBIN,DIRECT 0.2 MG/DL (0.0-0.2); BILIRUBIN,TOTAL 0.7 MG/DL (0.2-1.0); BLOOD UREA NITROGEN 8 MG/DL (7-18); CARBON DIOXIDE LEVEL 29 MEQ/L (21-32); CHLORIDE LEVEL 103 MEQ/L (98-107); CREATININE FOR GFR 0.67 MG/DL (0.55-1.30); GLOMERULAR FILTRATION RATE > 60.0 (>60); GLUCOSE, FASTING 82 MG/DL (70-100); PHOSPHORUS LEVEL 3.3 MG/DL (2.5-4.9); POTASSIUM SERUM 4.3 MEQ/L (3.5-5.1); SODIUM LEVEL 138 MEQ/L (136-145); TOTAL PROTEIN 7.4 GM/DL (6.4-8.2)
== END ==
LOC: M LAB 13:58
PROVIDERS: ATTEND Podiatrist Foot & Ankle Surgery
DX: B35.1 Tinea unguium (principal)

== ENCOUNTER → 2021-07-09 | Outpatient (CLI) | payer OTHER ==
[2021-07-09 17:42] LABS: HIV 1&2 SCREEN CENTAUR NEGATIVE (NEGATIVE)
== END ==
LOC: M LAB 15:21
PROVIDERS: ATTEND Nurse Practitioner Family
DX: Z20.2 Contact with and (suspected) exposure to infections with a predominantly sexual mode of transmission (principal)

== ENCOUNTER 2021-12-18 20:28 | Emergency (ER) | payer OTHER ==
[~2021-12-18] VITALS: Ht 170.2 cm; Wt 68.4 kg
[2021-12-18 20:29] VITALS: BP 103/61
[2021-12-18 22:58] LABS: BASO # 0.1 10^3/uL (0.0-0.2); BASO % 0.7 % (0.0-1.0); EOS # 0.2 10^3/uL (0.0-0.5); EOS % 1.5 % (0.0-3.0); HEMATOCRIT 38.5 % (36.0-47.0); HEMOGLOBIN 12.2 g/dl (12.0-15.5); LYMPH # 2.9 10^3/uL (1.5-5.0); MEAN CORPUSCULAR HEMOGLOBIN 28.9 pg (27.0-33.0); MEAN CORPUSCULAR HGB CONC 31.7 g/dl (32.0-36.5); MEAN CORPUSCULAR VOLUME 91.2 fl (80.0-96.0); MONO # 0.5 10^3/uL (0.0-0.8); MONO % 5.4 % (2.0-8.0); NEUTROPHILS # 6.3 10^3/uL (1.5-8.5); PLATELET COUNT, AUTOMATED 287 10^3/uL (150-450); RED BLOOD COUNT 4.22 10^6/uL (4.00-5.40)
[2021-12-18 23:28] LABS: ALT/SGPT 10 U/L (12-78); BILIRUBIN,DIRECT 0.1 MG/DL (0.0-0.2); BILIRUBIN,TOTAL 0.5 MG/DL (0.2-1.0); TOTAL PROTEIN 7.6 GM/DL (6.4-8.2)
[2021-12-18] MEDS ORDERED: FLUC150T9 PO (23:43)
[2021-12-18 23:55] LABS: HCG, SERUM QUALITATIVE NEGATIVE (NEGATIVE)
== END 2021-12-19 00:02 | disposition home or self-care (01) ==
LOC: M ED 20:28
DX: N93.9 Abnormal uterine and vaginal bleeding, unspecified (principal); B35.4 Tinea corporis; Z32.02 Encounter for pregnancy test, result negative; F17.200 Nicotine dependence, unspecified, uncomplicated

== ENCOUNTER 2022-05-18 08:44 | Emergency (ER) | payer OTHER ==
[~2022-05-18] VITALS: Ht 170.2 cm; Wt 74.7 kg
[2022-05-18 08:44] VITALS: BP 109/65
[~2022-05-18 08:44] MED LIST changes: +FLUC150T9 PO
[2022-05-18] MEDS ORDERED: DEPO150I12 IM (09:13)
[2022-05-18 09:58] LABS: RSV AMPLIFICATION NEGATIVE (NEGATIVE)
== END 2022-05-18 12:41 | disposition left against medical advice (07) ==
LOC: M ED 08:44
DX: Z53.21 Procedure and treatment not carried out due to patient leaving prior to being seen by health care provider (principal)

== ENCOUNTER → 2022-06-23 | Outpatient (REF) | payer OTHER ==
[~2022-06-23] MED LIST changes: +DEPO150I12 IM
== END ==
LOC: M LAB REF 16:30
PROVIDERS: ATTEND Student in an Organized Health Care Education/Training Program
DX: R30.0 Dysuria (principal)

== ENCOUNTER 2023-06-15 15:14 | Emergency (ER) | payer OTHER ==
[~2023-06-15] VITALS: Ht 170.2 cm; Wt 61.9 kg
[2023-06-15] MEDS ORDERED: FAMOTIDINE 20MG/2ML VIAL IVP ONE (16:15)
[2023-06-15] MEDS ORDERED: ONDANSETRON 4MG 2ML VIAL IV ONE (16:15)
[2023-06-15 16:33] LABS: RSV AMPLIFICATION NEGATIVE (NEGATIVE)
[2023-06-15] MEDS ORDERED: ISOVUE-370 76% 100ML VIAL As Ordered ONE (16:55)
[2023-06-15] MEDS ORDERED: NS 1,000 ML IV ONE (16:55)
[2023-06-15 16:59] LABS: BASO % 0.2 % (0.0-1.0); HEMATOCRIT 35.3 % (36.0-47.0); HEMOGLOBIN 11.6 g/dl (12.0-15.5); LYMPH # 1.1 10^3/uL (1.5-5.0); LYMPH % 7.6 % (24.0-44.0); MEAN CORPUSCULAR HEMOGLOBIN 29.5 pg (27.0-33.0); MEAN CORPUSCULAR HGB CONC 32.9 g/dl (32.0-36.5); MEAN CORPUSCULAR VOLUME 89.8 fl (80.0-96.0); MONO # 1.2 10^3/uL (0.0-0.8); MONO % 8.4 % (2.0-8.0); NEUTROPHILS # 12.1 10^3/uL (1.5-8.5); NEUTROPHILS % 83.3 % (36.0-66.0); PLATELET COUNT, AUTOMATED 181 10^3/uL (150-450); RED BLOOD COUNT 3.93 10^6/uL (4.00-5.40); WHITE BLOOD COUNT 14.6 10^3/uL (4.0-10.0)
[2023-06-15 17:26] LABS: LIPASE 19 U/L (12-53)
[2023-06-15 17:28] LABS: ALBUMIN 3.2 G/DL (3.2-5.2); ALKALINE PHOSPHATASE 51 U/L (46-116); ALT/SGPT < 9 U/L (7.0-40); AST/SGOT 9 U/L (<34); BILIRUBIN,DIRECT 0.4 MG/DL (<0.4); BILIRUBIN,TOTAL 0.8 MG/DL (0.3-1.2); TOTAL PROTEIN 6.8 G/DL (5.7-8.2)
[2023-06-15] MEDS ORDERED: cefTRIAXone SOD 1 GM in D5W MINI-BAG PLUS 50 ML IV ONE (18:00)
[2023-06-15 18:51] LABS: HCG, SERUM QUALITATIVE NEGATIVE (NEGATIVE)
[2023-06-15 19:10] VITALS: BP 133/81; TEMP 98.5; O2SAT 98
[2023-06-15] MEDS ORDERED: ONDA4TAB6 PO (19:33)
[2023-06-15] MEDS ORDERED: CEFP200T PO (19:33)
== END 2023-06-15 20:08 | disposition home or self-care (01) ==
LOC: M ED 15:14
DX: N10 Acute pyelonephritis (principal); F17.200 Nicotine dependence, unspecified, uncomplicated; Z79.2 Long term (current) use of antibiotics; Z79.83 Long term (current) use of bisphosphonates; Z79.899 Other long term (current) drug therapy
CPT/HCPCS: 74177; 80047; 80076; 81001; 83605; 83690; 84703; 85025; 87040; 87077; 87088; 87186; 87486; 87581; 87631; 87633; 87798; 96374; 99284; J0696; J2405; Q9967; S0028

== ENCOUNTER 2023-09-26 17:18 | Emergency (ER) | payer OTHER ==
[~2023-09-26] VITALS: Ht 170.2 cm; Wt 62.3 kg
[~2023-09-26 17:18] MED LIST changes: +CEFP200T PO
[2023-09-26 17:19] VITALS: BP 113/56; TEMP 98; O2SAT 97
[2023-09-26 18:38] LABS: BASO # 0.1 10^3/uL (0.0-0.2); BASO % 0.6 % (0.0-1.0); EOS # 0.2 10^3/uL (0.0-0.5); EOS % 1.2 % (0.0-3.0); HEMATOCRIT 39.7 % (36.0-47.0); HEMOGLOBIN 12.7 g/dl (12.0-15.5); LYMPH # 2.7 10^3/uL (1.5-5.0); MEAN CORPUSCULAR VOLUME 93.9 fl (80.0-96.0); MONO # 0.5 10^3/uL (0.0-0.8); NEUTROPHILS # 8.9 10^3/uL (1.5-8.5); NEUTROPHILS % 71.9 % (36.0-66.0); PLATELET COUNT, AUTOMATED 380 10^3/uL (150-450); RED BLOOD COUNT 4.23 10^6/uL (4.00-5.40); WHITE BLOOD COUNT 12.4 10^3/uL (4.0-10.0)
== END 2023-09-26 21:32 | disposition left against medical advice (07) ==
LOC: M ED 17:18
DX: Z53.21 Procedure and treatment not carried out due to patient leaving prior to being seen by health care provider (principal)

== ENCOUNTER → 2024-03-06 | Outpatient (REF) | payer OTHER ==
[~2024-03-06] MED LIST changes: +ONDA-282 PO; -ONDA4TAB6 PO
[2024-03-07 14:47] LABS: ALBUMIN 3.6 G/DL (3.2-5.2); ALKALINE PHOSPHATASE 45 U/L (46-116); ALT/SGPT 10 U/L (7.0-40); AST/SGOT < 8 U/L (<34); BILIRUBIN,TOTAL 0.5 MG/DL (0.3-1.2); BLOOD UREA NITROGEN 9 MG/DL (9-23); CALCIUM LEVEL 9.1 MG/DL (8.5-10.1); CARBON DIOXIDE LEVEL 29 MMOL/L (20-31); CHLORIDE LEVEL 105 MMOL/L (98-107); CREATININE FOR GFR 0.64 MG/DL (0.55-1.30); GLOMERULAR FILTRATION RATE > 60.0 (>60); GLUCOSE, FASTING 77 MG/DL (60-100); POTASSIUM SERUM 4.6 MMOL/L (3.5-5.1); SODIUM LEVEL 137 MMOL/L (136-145); TOTAL PROTEIN 6.7 G/DL (5.7-8.2)
[2024-03-07 14:50] LABS: THYROID STIMULATING HORMONE 1.098 uIU/ML (0.55-4.78)
[2024-03-07 14:51] LABS: TOTAL 25(OH) VITAMIN D 22.3 NG/ML (20.0-100.0)
== END ==
LOC: M LAB REF 13:07
PROVIDERS: ATTEND Physician Assistant
DX: F41.8 Other specified anxiety disorders (principal); Z11.9 Encounter for screening for infectious and parasitic diseases, unspecified; E55.9 Vitamin D deficiency, unspecified

== ENCOUNTER 2024-05-19 21:56 | Emergency (ER) | payer MEDICAID, OTHER ==
[~2024-05-19] VITALS: Ht 177.8 cm; Wt 49.9 kg
[2024-05-19] MEDS: methylPREDNISolone 125MG 2ML VIAL IV ONE (22:33)
[2024-05-19] MEDS: diphenhydrAMINE 50MG/ML VIAL IV ONE (22:33)
[2024-05-19] MEDS: FAMOTIDINE 20MG/2ML VIAL IVP ONE (22:33)
[2024-05-19] MEDS ORDERED: PRED20TA PO (23:08)
[2024-05-19] MEDS ORDERED: BENA25CA4 PO (23:08)
[2024-05-20 00:16] VITALS: BP 95/57; TEMP 96.8; O2SAT 98
== END 2024-05-20 00:33 | disposition home or self-care (01) ==
LOC: EDBD 21:56 → M ED 21:56
DX: T61.771A Other fish poisoning, accidental (unintentional), initial encounter (principal); R22.0 Localized swelling, mass and lump, head; Z91.013 Allergy to seafood; F17.290 Nicotine dependence, other tobacco product, uncomplicated
CPT/HCPCS: 93041; 94760; 96374; 96375; 99285; J1200; J2919; S0028

== ENCOUNTER → 2025-01-01 | Outpatient (REF) | payer OTHER ==
[~2025-01-01] MED LIST changes: +BENA25CA4 PO; +PRED20TA PO
[2025-01-01 18:38] LABS: AMORPHOUS SEDIMENT SMALL (NEGATIVE); APPEARANCE, URINE CLOUDY (CLEAR); BACTERIA, URINE AUTO 1+ (NEGATIVE); BILIRUBIN, URINE AUTO NEGATIVE (NEGATIVE); BLOOD, URINE BLOOD NEGATIVE (NEGATIVE); GLUCOSE, URINE (UA) AUTO NEGATIVE (NEGATIVE); KETONE, URINE AUTO NEGATIVE (NEGATIVE); LEUKOCYTE ESTERASE, URINE AUTO 3+ (NEGATIVE); NITRITE, URINE AUTO NEGATIVE (NEGATIVE); PROTEIN, URINE AUTO NEGATIVE (NEGATIVE); RBC, URINE AUTO 0 /HPF (0-3); SPECIFIC GRAVITY URINE AUTO 1.002 (1.002-1.035); SQUAMOUS EPITHELIAL CELL UR AU 54 /HPF (0-6); UROBILINOGEN, URINE AUTO 0.2 mg/dL (0.0-2.0); WBC, URINE AUTO 20 /HPF (0-3)
[2025-01-01 18:45] LABS: BASO # 0.1 10^3/uL (0.0-0.2); BASO % 0.9 % (0.0-1.0); EOS # 0.2 10^3/uL (0.0-0.5); EOS % 1.8 % (0.0-3.0); LYMPH # 1.9 10^3/uL (1.5-5.0); LYMPH % 21.6 % (24.0-44.0); MONO # 0.6 10^3/uL (0.0-0.8); MONO % 7.0 % (2.0-8.0); NEUTROPHILS # 6.1 10^3/uL (1.5-8.5); NEUTROPHILS % 68.4 % (36.0-66.0); PLATELET COUNT, AUTOMATED 321 10^3/uL (150-450)
[2025-01-01 18:54] LABS: ESTIMATED AVERAGE GLUCOSE 88.0 MG/DL (60-110)
[2025-01-01 18:57] LABS: HCG, SERUM QUALITATIVE NEGATIVE (NEGATIVE)
[2025-01-01 18:59] LABS: ALT/SGPT 10 U/L (7.0-40); AST/SGOT 13 U/L (<34); CALCIUM LEVEL 9.2 MG/DL (8.5-10.1); CARBON DIOXIDE LEVEL 28 MMOL/L (20-31); CHLORIDE LEVEL 101 MMOL/L (98-107); CREATININE FOR GFR 0.72 MG/DL (0.55-1.30); GLOMERULAR FILTRATION RATE > 90.0 (>60); POTASSIUM SERUM 4.2 MMOL/L (3.5-5.1); SODIUM LEVEL 138 MMOL/L (136-145)
[2025-01-01 19:02] LABS: VITAMIN B12 LEVEL 514 PG/ML (211-911)
== END ==
LOC: M LAB REF 17:32
PROVIDERS: ATTEND Physician Assistant
DX: R42 Dizziness and giddiness (principal); R35.89 Other polyuria

== ENCOUNTER 2025-02-21 12:48 | Emergency (ER) | payer OTHER ==
[~2025-02-21] VITALS: Ht 170.2 cm; Wt 57.3 kg
[~2025-02-21 12:48] MED LIST changes: -IBUP-1022 PO; +IBUP600T42 PO
[2025-02-21 12:50] VITALS: BP 98/64; TEMP 98.6; O2SAT 97
== END 2025-02-21 14:20 | disposition left against medical advice (07) ==
LOC: M ED 12:48
DX: Z53.21 Procedure and treatment not carried out due to patient leaving prior to being seen by health care provider (principal)